=== PATIENT | male | born 1975 | race Caucasian/White ===

== ENCOUNTER 2021-04-12 13:15 | Emergency (ER) | payer OTHER, SELFPAY ==
[2021-04-12 13:39] VITALS: BP 149/83; PULSE 94; RESP 20; TEMP 37.7; O2SAT 95; BMI 19.6
--- NOTE | 2021-04-12 13:52 | XR_ITS ---
WS: [id number] Chest with left rib detail, 04/12/2021 Clinical Data: trauma , fall, pain Comparison: None. Findings: The lungs show no nodules, masses, or effusions. The heart is normal. No pneumonia or pneumothorax is seen. The left ribs are intact. No rib fractures seen. No subcutaneous emphysema is present. XR/XR ribs LT mn 3V w [id number] Impression: Negative chest with left rib detail.
--- NOTE | 2021-04-12 13:52 | W.ED.TRAUMA ---
HPI - Trauma General: Chief Complaint: Trauma Stated Complaint: PT STATES BROKEN RIBS Time Seen by Provider: 04/12/21 13:48 History of Present Illness: HPI narrative: Patient [place] that [place] and went down between 2 root injuring his left chest. He says that he cannot take a deep breath -it hurts- he has a history of COPD and he has a productive cough now. Patient states he feels like he can feel something moving in his ribs on the left side. Patient is a smoker. MD complaint: injury Onset (ago): day(s) Loss of Consciousness: no Location: chest Severity: moderate Severity scale (1-10): 5 Associated symptoms: Reports no associated symptoms; Denies abdominal pain, chest pain, chills, fever(s), headache(s), nausea or vomiting Treatments prior to arrival: other (NSAIDs) Review of Systems Const: Denies: fever(s), chills or body aches Eyes: Denies: change in vision or blurry vision ENMT: Denies: throat pain or nasal congestion Card: Denies: chest pain or dyspnea on exertion Resp: Denies: dyspnea, productive cough or non-productive cough GI: Denies: abdominal pain, nausea or vomiting : Denies: difficulty urinating Musc: Reports: other (Rib pain left side); Denies: extremity pain Skin/Breast: Reports: other (Bruising left side of chest lower rib area abrasion right lower extremity); Denies: rash Neuro: Denies: headache(s) Psych: Denies: anxiety or depression Deshaun/Lymph: Denies: easy bruising [facility] [place] [facility] PFSH: Social History (Updated 04/12/21 @ 12:31 by Phu Guzman LPN) Smoking and tobacco status: current every day smoker cigarettes Quit status (tobacco): not considering quitting Second hand smoke exposure: No Alcohol intake: current Alcohol intake frequency: few times a week Desire information about alcohol rehabilitation?: No Desire information about substance/drug rehabilitation?: No Physical Exam Const: COMMON NORMALS: no acute distress, average body habitus and patient oriented x3 HENMT: COMMON NORMALS: normocephalic HEAD & SCALP: normal to inspection and normocephalic FACE & SINUS: normal facial exam Eye: COMMON NORMALS: conjunctivae normal GENERAL EYE: appearance normal, both eyes and all related structures CONJUNCTIVA: Yes conjunctivae normal Neck/C-Spine: COMMON NORMALS: no JVD Chest: CHEST: Yes localized rib tenderness with anteroposterior compression (Bruising swelling lower rib area half of rib cage anterior) Resp: COMMON NORMALS: normal respiratory effort AUSCULTATION: rhonchi (Throughout) Cardio: COMMON NORMALS: no JVD, regular rate and regular rhythm RATE: regular rate RHYTHM: regular rhythm GI: COMMON NORMALS: Normal to inspection, nondistended, normoactive bowel sounds present Extremity: COMMON NORMALS: normal to inspection and full ROM Neuro: COMMON NORMALS: patient oriented x3 Skin: OTHER: Bruising left rib area anterior. Has dry and abrasions right sen. Course Vital Signs: Vital signs: Vital Signs Temperature 99.8 F H 04/12/21 13:39 Pulse Rate 94 04/12/21 13:39 Respiratory Rate 20 H 04/12/21 13:39 Blood Pressure 149/83 04/12/21 13:39 Pulse Oximetry 95 04/12/21 13:39 Discharge Plan Discharge Prescriptions: No Action bupropion HCl [Wellbutrin SR] 100 mg tablet sustained-release 12 hr 100 mg PO DAILY RF: 0 sildenafil [Viagra] 25 mg tablet 25 mg PO DAILY PRNRF: 0 Coding Level of Care Code ED Orthopedic Surgeon for Chg Callie
[2021-04-12] MEDS: HYDROcodone-acetaminophen 7.5-325 mg Tablet 1 TAB PO (14:06)
[2021-04-12 14:07] VITALS: BP 131/86; PULSE 96; RESP 16; O2SAT 97
== END 2021-04-12 15:02 | disposition home or self-care (01) ==
PROVIDERS: Emergency Provider Nurse Practitioner Family
DX: S30.1XXA Contusion of abdominal wall, initial encounter (principal); W22.8XXA Striking against or struck by other objects, initial encounter; F17.210 Nicotine dependence, cigarettes, uncomplicated
CPT/HCPCS: 71101; 99283